=== PATIENT | male | born 1960 | race Caucasian/White ===

== ENCOUNTER 2023-09-01 00:41 | Emergency (ER) | payer MEDICARE, OTHER, SELFPAY ==
[2023-09-01] VITALS (18 sets, daily range): BP systolic 163–200; BP diastolic 93–113; PULSE 68–102; RESP 16–94; TEMP 36.2–36.6; O2SAT 24–97; BMI 28.2
--- NOTE | 2023-09-01 00:56 | CT_ITS ---
INDICATION: seizure EXAMINATION: CT BRAIN - CT Head or Brain W/O Contrast Injection TECHNIQUE: Multiple axial images were obtained of the head without intravenous contrast. A radiation dose optimization technique was used for this scan. IV Contrast dosage and agent: None. COMPARISON: None FINDINGS: BRAIN PARENCHYMA: No intra- or extra-axial hemorrhage. No evidence of acute infarct. Focal CSF density encephalomalacia spanning 6 mm along the left anterior corpus callosum. No intracranial mass or mass effect. Minimal periventricular and subcortical white matter hypodense chronic small vessel white matter ischemic change. There is preservation of the luong/white matter interface. Posterior fossa structures are unremarkable. CSF SPACES: Cerebral volume appropriate for age. No hydrocephalus. Basal cisterns are patent. CALVARIUM, SKULL BASE, PARANASAL SINUSES AND MASTOID AIR CELLS: No acute osseous finding. Mild scattered paransal sinus mucoperisteal thickening. Mastoid air cells are clear. ORBITS: Both globes, extraocular muscles, optic nerves and retrobulbar fat appear unremarkable. ASPECTS Score for Acute Strokes: 10 CT/Brain/Head without Contrast IMPRESSION: 6 mm CSF density encephalomalacia along the left anterior corpus callosum compatible with prior infarct. No surrounding edema or associated mass effect. MRI could further evaluate as clinically indicated. No CT evidence of acute intracranial hemorrhage or injury. Electronically Signed: Bull Branch MD at 2:40 EDT ,
--- NOTE | 2023-09-01 00:56 | RAD_ITS ---
INDICATION: seizure EXAMINATION/TECHNIQUE: X-RAY - XR Chest 1 View COMPARISON: None. FINDINGS: LINES/DEVICES: None. LUNGS: Elevated right hemidiaphragm. No consolidation, florid edema or effusion. Mild subsegmental atelectasis or scarring in the left lung base. No pneumothorax. MEDIASTINUM AND CARDIOVASCULAR STRUCTURES: Cardiac silhouette not enlarged. BONES AND SOFT TISSUES: Unremarkable. RAD/Chest 1 View (Portable) IMPRESSION: No radiographic evidence of acute cardiopulmonary disease. Electronically Signed: Bull Branch MD at 1:30 EDT ,
--- NOTE | 2023-09-01 00:56 | CT_ITS ---
INDICATION: abd pain EXAMINATION: CT ABDOMEN AND PELVIS WITH CONTRAST - CT Abdomen And Pelvis W/ Contrast Injection TECHNIQUE: Helically acquired images were obtained of the abdomen and pelvis following IV contrast. A radiation dose optimization technique was used for this scan. IV Contrast dosage and agent: 100 mL Isovue-370 Oral contrast: None. COMPARISON: Chest radiograph September 01, 2023. FINDINGS: LOWER CHEST: Elevated right hemidiaphragm. Mild bilateral basilar subsegmental atelectasis. Mild cardiomegaly. Mild multivessel coronary atherosclerosis. No pericardial effusion. LIVER: Homogeneous. No focal mass. GALLBLADDER AND BILIARY TREE: No calcified gallstones. No gallbladder distension or wall edema. No intra- or extrahepatic biliary ductal dilation. PANCREAS: No focal cystic or solid mass. SPLEEN: Normal size without focal cystic or solid mass. ADRENAL GLANDS: No nodules. KIDNEYS AND URETERS: Indeterminate right renal exophytic 2.6 cm length hypodense lesion. Otherwise unremarkable bilateral renal cortical appearance. No hydronephrosis. Mild bilateral senescent perinephric stranding. Unremarkable ureters and bladder . PERITONEUM: No ascites or free air. No other fluid collection. BOWEL: No acute gastric finding. No small bowel distention or focal wall thickening. Prior appendectomy suggested . No colonic wall thickening or surrounding inflammation. Moderate to large distal colonic stool burden LYMPH NODES: No enlarged mesenteric or retroperitoneal lymph nodes. VESSELS: Aortic atherosclerosis without dissection or ectasia. REPRODUCTIVE ORGANS: Large prostate 5.5 cm transverse with small central calcification.. ABDOMINAL WALL: Small fat-containing inguinal hernias without inflammation. No discrete abdominal or pelvic wall hernia. BONES: No lytic or blastic abnormality. CT/Abdomen/Pelvis W IV Cont ONLY IMPRESSION: Moderate to large distal colonic stool burden as can be seen with constipation. No evidence of bowel obstruction or focal inflammatory change. Indeterminate exophytic right renal 2.6 cm lesion. Recommend ultrasound follow-up to assess for hyperdense cyst. If not definitive multiphasic contrast-enhanced CT or MRI would be recommended. Large prostate. Bilateral fat-containing inguinal hernias without inflammation. Electronically Signed: Bull Branch MD at 2:56 EDT ,
[2023-09-01 00:57] LABS: Blood Gas Specimen Type VEN; O2 Delivery Device Room Air; SITE Not entered; VBG BASE EXCESS -9 mmol/L (-1.0-3.5); VBG Bicarbonate 18 mmol/L (22-26); VBG PO2 61 mmHg (25-40); VBG SO2 89 % (50-70); VBG TCO2 19 mmol/L (23-33); VBG pCO2 35.1 mmHg (41-51); VBG pH 7.31 (7.32-7.42)
[2023-09-01] MEDS: Ondansetron 4 MG/2 ML Vial IV (01:05)
[2023-09-01] MEDS: 0.9% Normal Saline (1000mL) 1,000 ML 999 ML IV (01:05)
[2023-09-01 01:10] LABS: Absolute Lymphocyte Count 5.33 X10^3/uL (0.83-4.51); Absolute Neutrophil Count 7.6 X10^3/uL (2.0-7.7); Basophil# 0.11 X10^3/uL; Basophil% 0.7 % (0-1); Eosinophil# 0.45 X10^3/uL; Hematocrit 52.5 % (40-54); Lymphocyte # 5.33 X10^3/ul (0.83-4.51); Lymphocyte % 35.4 % (19-41); Mean Corp Hgb Conc 32.4 g/dL (32-36); Mean Corpuscular Hgb 30.2 pg (27.0-32.0); Mean Corpuscular Volume 93.4 fL (80-94); Mean Platelet Vol. 9.3 fl (6.2-12.0); Monocyte# 1.27 X10^3/uL; Monocyte% 8.4 % (0-10); NRBC Flagged by Analyzer 0 % (0-5); Neutrophil # 7.64 X10^3/uL (2.7-7.7); Neutrophil % 50.7 % (47-70); POSITIVE DIFFERENTIAL YES; POSITIVE MORPHOLOGY YES; Platelet Count 323 K/mm3 (150-450); RBC Distribution Width CV 14.2 % (11.6-14.6); RBC Distribution Width SD 49.1 fl (35.1-43.9); Red Blood Count 5.62 M/mm3 (4.6-6.2); White Blood Count 15.1 K/mm3 (4.4-11.0)
[2023-09-01 01:28] LABS: Alcohol, Blood (Medical)-Serum < 3.0 mg/dL
[2023-09-01 01:36] LABS: Anion Gap 10 (5-15); BUN 19 mg/dL (7-18); BUN/Creat Ratio 14.8 RATIO (10-20); Calcium,Total 8.5 mg/dL (8.5-10.1); Chloride 111 mmol/L (98-107); Creatinine, Serum 1.28 mg/dL (0.70-1.30); EST Glomerular Filtration Rate 60 mL/min (>60); Est Glom Filt Rate - Afr Amer 73 mL/min (>60); Estimated Creatinine Clearance 59.66 ml/min; Glucose 158 mg/dL (74-106); LDH 208 U/L (87-241); Lactic Acid 7.2 mmol/L (0.4-1.9); Magnesium 2.2 mg/dL (1.6-2.6); Potassium 3.2 mmol/L (3.5-5.1); Sodium Level 142 mmol/L (136-145)
[2023-09-01 02:20] LABS: Differential Indicated SCAN CRITERIA MET
[2023-09-01 02:21] LABS: Differential Comment SCANNED
[2023-09-01 02:24] LABS: Bacteria 0 SEEN /hpf (None Seen); Mucous, Urine 0 SEEN /hpf (<or=2+); Squamous Epithelial Cells - UA 0 SEEN /hpf (0-5); White Blood Cells 0 SEEN /hpf (0-5)
[2023-09-01 02:28] LABS: Color, Urine Yellow (Yellow); Glucose, Dipstick Normal (Normal); Ketone-Dipstick Negative (Negative); Leukocyte Esterase-Dipstick Negative /ul (Negative); Nitrite-Dipstick Negative (Negative); Occult Blood-Urine 10 /ul (Negative); Protein-Dipstick 30 mg/dl (Negative); Urine Bilirubin Dipstick Negative (Negative); Urine Clarity Clear (Clear); Urine Urobilinogen Normal (Normal); Urine pH 6.5 (5.0 - 8.0)
[2023-09-01 02:36] LABS: Red Blood Cells-Urine 0-5 SEEN /hpf (0-5)
[2023-09-01 02:43] LABS: Amphetamine Urine VISTA NEGATIVE (<1000 ng/mL); Barbiturate Urine VISTA NEGATIVE (< 200 ng/mL); Benzodiazepine Urine VISTA NEGATIVE (< 200 ng/mL); Cocaine Urine VISTA NEGATIVE (< 300 ng/mL); Ecstacy Urine VISTA NEGATIVE (< 500 ng/mL); Methadone Urine VISTA NEGATIVE (< 300 ng/mL); PCP Urine VISTA NEGATIVE (< 25 ng/mL); THC Urine VISTA NEGATIVE (< 50 ng/mL); Vista UDS pH Range 5
[2023-09-01] MEDS: cloNIDine HCl 0.1 MG Tablet PO (04:16)
[2023-09-01] MEDS: Labetalol (Prefilled) 20 MG/4 ML 10 MG IV ×2 (04:17→05:10)
[2023-09-01 05:03] LABS: Reflex Lactate? Y
--- NOTE | 2023-09-01 05:52 | EX.ED.DYSGE1 ---
HPI History of Present Illness Chief Complaint: Unresponsive Informant: patient and spouse/S.O. Narrative Narrative: Patient is a 63-year-old male who reports that he is overall healthy. states that she was downstairs while he was upstairs in bed tonight. She states she heard some type of retching or abnormal noises coming from the bedroom and went up to check on the patient. She states when she arrived patient seemed to be stiff and he would not respond and secondary to his EMS was called for evaluation. EMS reports that patient was breathing but not following commands and appeared unresponsive upon arrival Of note mental status is still depressed upon arrival to the ER but has drastically improved and he is answering questions and following commands. He states he does not remember any of the preceding events PFSH PFS Home Medications ?Medication ?Instructions ?Recorded ?Last Taken ?Type lisinopril 20 mg tablet 20 mg PO DAILY 30 days #30 tabs 09/01/23 Unknown Rx Allergy/AdvReac Type Severity Reaction Status Date / Time No Known Allergies Allergy Verified 09/01/23 00:44 Social History Smoking Status: Never smoker ROS [facility] ED Constitutional Constitutional ED: Denies chills or fever(s) Eyes Eyes: Denies blurry vision, change in vision or diplopia ENT ENT ED: Denies sore throat Cardiovascular Cardiovascular: Denies chest pain Respiratory/Chest Respiratory/Chest: Denies cough or dyspnea Gastrointestinal Gastrointestinal: Denies abdominal pain, diarrhea, nausea or vomiting Genitourinary Genitourinary ED: Denies dysuria Musculoskeletal Musculoskeletal: Denies myalgias Integumentary Denies rash Neurologic Neurologic: Denies headache(s) Hematologic/Lymphatic Hematologic/Lymphatic: Denies easy bleeding or easy bruising EXAM Physical Exam Const Vital Signs: 09/01/23 00:42 09/01/23 01:41 09/01/23 02:00 Temperature 97.8 F Temperature Source Axillary Pulse Rate 102 H 78 77 Respiratory Rate 20 H 94 H 20 H Blood Pressure 187/101 H 187/98 H 175/99 H Blood Pressure Mean 129 127 124 Pulse Ox 89 24 95 Oxygen Delivery Method Room Air Nasal Cannula Nasal Cannula Oxygen Flow Rate (L/min) 2 2 09/01/23 00:56 09/01/23 01:00 09/01/23 01:15 Temperature Temperature Source Pulse Rate 98 99 97 Respiratory Rate 27 H 28 H 25 H Blood Pressure 186/108 H 184/111 H Blood Pressure Mean 131 132 Pulse Ox 93 91 92 Oxygen Delivery Method Oxygen Flow Rate (L/min) 09/01/23 01:30 09/01/23 01:40 09/01/23 01:45 Temperature Temperature Source Pulse Rate 99 90 Respiratory Rate 22 H 20 H Blood Pressure 171/104 H 178/101 H Blood Pressure Mean 121 124 Pulse Ox 91 89 Oxygen Delivery Method Room Air Oxygen Flow Rate (L/min) 09/01/23 01:51 09/01/23 02:00 09/01/23 02:15 Temperature Temperature Source Pulse Rate 83 87 83 Respiratory Rate 25 H 26 H 25 H Blood Pressure 172/93 H 175/99 H 187/98 H Blood Pressure Mean 117 120 124 Pulse Ox 92 94 92 Oxygen Delivery Method Room Air Oxygen Flow Rate (L/min) 09/01/23 02:30 09/01/23 02:45 09/01/23 03:00 Temperature Temperature Source Pulse Rate 77 Respiratory Rate 26 H Blood Pressure 186/109 H 185/108 H 200/111 H Blood Pressure Mean 131 131 138 Pulse Ox 94 Oxygen Delivery Method Room Air Room Air Oxygen Flow Rate (L/min) 09/01/23 03:00 09/01/23 04:00 09/01/23 05:00 Temperature Temperature Source Pulse Rate 77 72 68 Respiratory Rate 25 H 16 18 Blood Pressure 196/111 H 190/111 H 182/113 H Blood Pressure Mean 139 137 136 Pulse Ox 96 97 93 Oxygen Delivery Method Room Air Room Air Room Air Oxygen Flow Rate (L/min) 09/01/23 05:10 Temperature Temperature Source Pulse Rate Respiratory Rate Blood Pressure 187/107 H Blood Pressure Mean 133 Pulse Ox Oxygen Delivery Method Oxygen Flow Rate (L/min) Positive well nourished, well developed and obese General Appearance ED: well developed; Negative for pallor Nutritional Appearance: obese HEENT Reports moist mucous membranes HEENT Narrative: Positive tongue and cheek biting noted concerning for seizure activity No signs of infection noted in the posterior pharynx Eyes PERRL and EOMs intact bilaterally General Eye ED: Negative for scleral icterus Neck supple Neck Narrative: No nuchal rigidity or meningeal signs Chest Wall palpation of chest normal Chest Narrative: No bony deformity or crepitance Resp normal respiratory effort and clear to auscultation bilaterally Resp Narrative: No nasal flaring retractions tachypnea or accessory muscle use Cardio regular rhythm Rate: tachycardic and other Other Details: Tachycardic rate with regular rhythm Radial and carotid pulses are equal and symmetric GI normal to inspection, nondistended, normoactive bowel sounds, non-tender, non-distended and no masses GI Narrative: No voluntary guarding or rigidity or pulsatile mass or fluid wave Auscultation: normoactive bowel sounds Palpation: soft Back/Spine Back/Spine Narrative: No bony deformity or step-off of the thoracic or lumbar spine no midline tenderness to palpation Extremity normal to inspection Extremity Narrative: No asymmetric edema no pitting edema negative Homans' sign bilaterally Neuro CN's II-XII intact bilaterally Neuro Narrative: Patient has a GCS of 14. He is slow to respond but does answer appropriately. Cranial nerves II through XII are grossly intact without focal neurologic deficit. Sensorium / Orientation: orientation impaired Psych Psych Narrative: Patient has a flat affect Skin no rashes or lesions noted, no wounds and skin turgor normal General Skin Exam: Negative for jaundice or pallor MDM MDM MDM Narrative Medical decision making narrative: Patient arrived to the ER hypertensive with GCS of 14. reported finding him stiff and unresponsive and EMS reported that he was spontaneously breathing but not following commands or awake upon their arrival. He has had spontaneous improvement of his mental status in the ER. On exam he does have tongue and cheek biting. Differential diagnosis is for new onset seizure activity versus electrolyte abnormality versus acute kidney injury versus spontaneous brain bleed such as subarachnoid or subdural hemorrhage. Secondary to this concern basic blood work and a CT of the head were obtained. Labs showed leukocytosis and lactic acidosis most consistent with stress response from his most likely seizure activity. There are no other signs concerning for infection and states that he is not a drinker and therefore there is low concern for alcohol withdrawal. Patient CT scan revealed no acute brain pathology. As he was kept in the ER his mental status returned to a GCS of 15 and his neurologic exam was normal. He was hypertensive upon arrival but after treatment his blood pressure reduced between 15 and 25% which is the target goal in the ER. With this there were no signs of endorgan damage. Therefore at this time as patient's had improvement of his vitals as well as mental status his neurologic exam is normal and his workup for acute cause of seizure is negative and has not had any further seizure activity I feel he is safe for discharge and can follow-up with neurology on an outpatient basis. History & Record Review Discussion w/independent historian: Patient and Family Lab Data Attestation: I reviewed the patient's lab results. Labs: Laboratory Results - last 24 hr 09/01/23 09/01/23 00:48 02:20 WBC 15.1 H RBC 5.62 Hgb 17.0 H Hct 52.5 MCV 93.4 MCH 30.2 MCHC 32.4 RDW Std Deviation 49.1 H RDW Coeff of Mushtaq 14.2 Plt Count 323 MPV 9.3 Immature Gran % (Auto) 1.800 H Neut % (Auto) 50.7 Lymph % (Auto) 35.4 Haakon % (Auto) 8.4 Eos % (Auto) 3.0 Baso % (Auto) 0.7 Absolute Neuts (auto) 7.6 Absolute Lymphs (auto) 5.33 H Nucleated RBC % 0 Differential Comment SCANNED Sodium 142 Potassium 3.2 L Chloride 111 H Carbon Dioxide 21.0 Anion Gap 10 BUN 19 H Creatinine 1.28 Estim Creat Clear Calc 59.66 Est GFR (MDRD) Af Amer 73 Est GFR (MDRD) Non-Af 60 BUN/Creatinine Ratio 14.8 Glucose 158 H Lactic Acid 7.2 H* Calcium 8.5 Magnesium 2.2 Lactate Dehydrogenase 208 Prolactin 40.0 Urine Color Yellow Urine Clarity Clear Urine pH 6.5 Ur Specific [place] 1.010 Urine Protein 30 H Urine Glucose (UA) Normal Urine Ketones Negative Urine Occult Blood 10 H Urine Nitrite Negative Urine Bilirubin Negative Urine Urobilinogen Normal Ur Leukocyte Esterase Negative Urine RBC 0-5 SEEN Urine WBC 0 SEEN Ur Squamous Epith Cells 0 SEEN Urine Bacteria 0 SEEN Urine Mucus 0 SEEN Urine Opiates Screen NEGATIVE Urine Methadone Screen NEGATIVE Ur Barbiturates Screen NEGATIVE Ur Phencyclidine Scrn NEGATIVE Ur Amphetamines Screen NEGATIVE MDMA (Ecstasy) Screen NEGATIVE U Benzodiazepines Scrn NEGATIVE Urine Cocaine Screen NEGATIVE U Cannabinoids Screen NEGATIVE Ur Drug Screen Comment Ethyl Alcohol < 3.0 ABG Data ABG results: ABG 09/01/23 00:53 Specimen Type MACARENA Sample Site Not entered VBG pH 7.31 L VBG pO2 61 H VBG HCO3 18 L VBG Total CO2 19 L VBG O2 Sat (Calc) 89 H VBG Base Excess -9 L POC Mix VBG pCO2 Pt Tmp 35.1 L O2 Delivery Device Room Air Radiography Diagnostic Testing: Clinical Impression(s) from Imaging Studies Abdomen/Pelvis CT 09/01/23 00:56 IMPRESSION: Moderate to large distal colonic stool burden as can be seen with constipation. No evidence of bowel obstruction or focal inflammatory change. Indeterminate exophytic right renal 2.6 cm lesion. Recommend ultrasound follow-up to assess for hyperdense cyst. If not definitive multiphasic contrast-enhanced CT or MRI would be recommended. Large prostate. Bilateral fat-containing inguinal hernias without inflammation. Electronically Signed: Bull Branch MD at 2:56 EDT , Brain CT 09/01/23 00:56 IMPRESSION: 6 mm CSF density encephalomalacia along the left anterior corpus callosum compatible with prior infarct. No surrounding edema or associated mass effect. MRI could further evaluate as clinically indicated. No CT evidence of acute intracranial hemorrhage or injury. Electronically Signed: Bull Branch MD at 2:40 EDT , Chest X-Ray 09/01/23 00:56 IMPRESSION: No radiographic evidence of acute cardiopulmonary disease. Electronically Signed: Bull Branch MD at 1:30 EDT , Chest x-ray as interpreted by the emergency medicine physician reveals no acute infiltrate pneumothorax or pleural effusion Discharge Plan Triage Chief Complaint: Unresponsive ED Provider: Haile Walden Dx/Rx/DC Orders Clinical Impression: New onset seizure, Hypertension Instructions: ED Hypertension New Begin Treatment, ED Seizure New [facility] Adult Prescriptions: New lisinopril 20 mg tablet 20 mg PO DAILY 30 Days Qty: 30 0RF Primary Care Provider: Care Physician,No Primary Referrals: Jose Alberto Neumann MD [Non-Staff] - Enrique Lara MD [Non-Staff -Ordering Privileges] - Care Physician,No Primary [Primary Care Provider] - Activity Restrictions/Additional Instructions: Please take the lisinopril as directed to help control your blood pressure and follow-up with your family doctor to discuss continuing or changing this treatment. Also discussed with your family doctor about obtaining an outpatient ultrasound or MRI based on the masses found on your right kidney today. Do not drive or operate heavy machinery based on your seizure activity that occurred this evening and follow-up with neurology for repeat evaluation Print Language: Swedish Disposition Disposition: Home, Self Care Discharge Date/Time: 09/01/23 06:12
== END 2023-09-01 06:12 | disposition home or self-care (01) ==
PROVIDERS: Emergency Provider Emergency Medicine; Visit Provider Emergency Medicine
DX: R56.9 Unspecified convulsions (principal); I10 Essential (primary) hypertension
CPT/HCPCS: 70450; 71045; 74177; 80048; 80307; 80320; 81001; 82803; 83605; 83615; 83735; 84146; 85025; 93005; 96361; 96374; 96375; 99284; Q9967; A4216; G0480; J2405

== ENCOUNTER 2023-09-28 11:47 | Outpatient (CLI) | payer MEDICARE, OTHER, SELFPAY ==
[2023-09-28 15:35] LABS: Hemoglobin 16.3 g/dL (13.0-16.5); Mean Corp Hgb Conc 32.6 g/dL (32-36); Mean Corpuscular Volume 91.9 fL (80-94); Mean Platelet Vol. 9.8 fl (6.2-12.0); Platelet Count 301 K/mm3 (150-450); RBC Distribution Width CV 14.3 % (11.6-14.6); Red Blood Count 5.44 M/mm3 (4.6-6.2); White Blood Count 11.3 K/mm3 (4.4-11.0)
[2023-09-28 15:47] LABS: Vitamin D,25 Hydroxy 24.4 ng/mL
[2023-09-28 16:47] LABS: ALB/GLOB Ratio 1.1 RATIO (0.9-2.4); AST(SGOT) 23 U/L (15-37); Alanine Aminotransfer ALT/SGPT 45 U/L (16-61); Albumin, Serum 3.8 g/dL (3.2-5.0); Alkaline Phosphatase 88 U/L (45-117); Anion Gap 7 (5-15); BUN 18 mg/dL (7-18); BUN/Creat Ratio 18.6 RATIO (10-20); Calcium,Total 9.1 mg/dL (8.5-10.1); Chloride 115 mmol/L (98-107); Creatinine, Serum 0.97 mg/dL (0.70-1.30); EST Glomerular Filtration Rate 83 mL/min (>60); Est Glom Filt Rate - Afr Amer 100 mL/min (>60); Globulin 3.6 g/dL (2.2-4.2); Glucose 97 mg/dL (74-106); Protein, Total 7.4 g/dL (6.4-8.2); Sodium Level 142 mmol/L (136-145); Thyroid Stim Hormone (TSH) 0.88 uIU/mL (0.358-3.74)
== END 2023-09-28 23:59 | disposition home or self-care (01) ==
LOC: MFPLAB 11:50
PROVIDERS: PCP Family Medicine; Visit Provider Family Medicine
DX: I10 Essential (primary) hypertension (principal); Z12.5 Encounter for screening for malignant neoplasm of prostate
CPT/HCPCS: 36415; 80053; 82306; 84153; 84443; 85027; G0103

== ENCOUNTER → 2023-10-19 | Outpatient (CLI) | payer MEDICARE, OTHER, SELFPAY ==
--- NOTE | 2023-10-19 | IMM_PTH ---
PATIENT: RACHEL WHITEHEAD LOC: [facility] U#:[id number] AGE/SX: 63/M ROOM: RE10/19/[address]: Dr. Clive Tomas MD : 1960 BED: DIS: 10/19/2023 SPEC #: [id number] RECD: 10/23/23 12:04 STATUS: ARTURO RETawny #: [id number] JOEL: 10/19/23 00:[address]: Clive Tomas DEPT: IMMUNOHISTOCHEMISTRY RECD BY: Tomas Iverson ENTERED: 10/23/23 12:05 SP TYPE: IMMUNO OTHR DR: Yaima Escobar MD Tissues: A - PROSTATE RIGHT B - PROSTATE RIGHT C - PROSTATE RIGHT Procedures: S100 (initial) PHYSICIAN & INSTITUTION [place] [id number] SPECIMEN INFORMATION: Tissue Source: A- Prostate, right apex, B- Prostate, right mid, C- Prostate, right base Clinical Info: Elevated PSA Specimen Number: [id number] CPT code: 14047a1 METHODOLOGY: Deparaffinized sections of prefer/formalin-fixed tissue or PAP/DQ stained slides are incubated with monoclonal/polyclonal antibodies/oligonucleotide probes. Localization is made via biotin free immunoperoxidase method. Appropriate controls are performed and reacted as expected. Results on target cell population are indicated in the following table: RESULTS: ANTIBODY / CLONE RESULT Block A S-100 (4C4.9) positive Block B S-100 (4C4.9) positive Block C S-100 (4C4.9) positive These tests were developed and their performance characteristics determined by [facility]. They may not have been cleared or approved by the U.S. Food and Drug Administration. The FDA has determined that such clearance or approval is not necessary. The above immunohistochemical/dualISH markers are ordered and reviewed by the Pathologist. INTERPRETATION: A. Prostate, right apex, core biopsy: Perineural invasion present. B. Prostate, right mid, core biopsy: Perineural invasion present. C. Prostate, right base, core biopsy: Perineural invasion present. AM/ 10/24/2023
--- NOTE | 2023-10-19 08:00 | PROSBIL_PTH ---
PATIENT: RACHEL WHITEHEAD [facility] U#:[id number] AGE/SX: 63/M ROOM: RE10/19/[address]: Dr. Clive Tomas MD : 1960 BED: DIS: 10/19/2023 SPEC #: [id number] RECD: 10/19/23 15:00 STATUS: ARTURO DUARTE #: [id number] JOEL: 10/19/23 08:[address]: Clive Tomas DEPT: SURGICAL PATHOLOGY RECD BY: Karthik Hernandez ENTERED: 10/20/23 07:14 SP TYPE: PROST BX OT DR: Yaima Escobar MD Tissues: A - PROSTATE RIGHT B - PROSTATE RIGHT C - PROSTATE RIGHT Procedures: PROSTATE BX HEADER OPERATION: Prostate biopsy PRE-OP DIAGNOSIS: Elevated PSA TISSUE SUBMITTED: A- Right apex, B- Right mid, C- Right base MICROSCOPIC DIAGNOSIS A. Right prostate apex, core biopsy: Adenocarcinoma. Fults grade: 3+4=7 Cores involved: 1/1 Tissue involved: 100% (discontinuous) Greatest tumor length: 10.0 millimeters Perineural invasion: present. See comment. B. Right mid prostate, core biopsy: Adenocarcinoma. Fults grade: 3+4=7 Cores involved: 1/1 Tissue involved: 95% Greatest tumor length: 10.5 millimeters Perineural invasion: present. See comment. C. Right prostate base, core biopsy: Adenocarcinoma. Fults grade: 3+4=7 Cores involved: 1/1 Tissue involved: 75% Greatest tumor length: 9.0 millimeters Perineural invasion: present. See comment. ROMI/ 10/23/2023 COMMENT A,B,C, Immunohistochemistry ([id number]) supports the above diagnosis. Case has been reviewed in consultation with Dr. Hancock who concurs with the above diagnosis. IDC:[id number] MICROSCOPIC DESCRIPTION Slides are reviewed. GROSS DESCRIPTION A - Received is one container designated prostate, right apex. The specimen consists of one elongated fragments of light ling-white soft tissue measuring 1.0 cm in length and 0.1 cm in diameter. The specimen is totally submitted in one cassette. B - Received is one container designated prostate, right mid. The specimen consists of one elongated fragments of light ling-white soft tissue measuring 1.2 cm in length and 0.1 cm in diameter. The specimen is totally submitted in one cassette. C - Received is one container designated prostate, right base. The specimen consists of one elongated fragments of light ling-white soft tissue measuring 1.5 cm in length and 0.1 cm in diameter. The specimen is totally submitted in one cassette. SJ/mr 10/20/2023 TC:0 CPT: G0146
== END | disposition home or self-care (01) ==
LOC: LABSPEC 15:57
PROVIDERS: PCP Family Medicine; Visit Provider Urology
DX: R97.20 Elevated prostate specific antigen [PSA] (principal)
CPT/HCPCS: 88305; 88342; G0416

== ENCOUNTER → 2023-10-31 | Outpatient (CLI) | payer MEDICARE, OTHER, SELFPAY ==
--- NOTE | 2023-10-31 08:17 | NM_ITS ---
CLINICAL: 63-year-old male with history of primary prostate carcinoma. WHOLE BODY 99m Tc MDP RADIONUCLIDE BONE SCINTIGRAPHY COMPARISON: None available FINDINGS: Following the intravenous administration of 25.0 mCi of 99m Tc MDP, whole body bone images reveal: 1. There is increased tracer concentration defined in the acromioclavicular and sternoclavicular compartments of both shoulders, the upper cervical spine posteriorly on the right, the sixth and seventh thoracic vertebra, the first and second lumbar vertebra, the left ankle and right midfoot. 2. The remaining skeletal structures are scintigraphically unremarkable with normal-appearing renal images and urinary bladder activity identified. NM/Bone Scan Whole Body IMPRESSION: 1. The increase in radiopharmaceutical defined in the bilateral shoulders, cervical, thoracic and lumbar spine, the left ankle and right midfoot is commensurate with degenerative arthritis. Plain film x-ray may be of benefit in the region of the lumbar spine. 2. There is no definitive scintigraphic evidence of skeletal metastatic disease on the present examination. Electronically Signed: Sherif Rangel DO at 22:10 EDT ,
== END | disposition home or self-care (01) ==
PROVIDERS: PCP Family Medicine; Referring Provider Urology; Visit Provider Urology
DX: C61 Malignant neoplasm of prostate (principal)
CPT/HCPCS: 78306; A9503

== ENCOUNTER → 2023-11-08 | Outpatient (CLI) | payer MEDICARE, OTHER, SELFPAY ==
--- NOTE | 2023-11-08 13:19 | CT_ITS ---
STUDY: CT ABDOMEN AND PELVIS WITH CONTRAST REASON FOR EXAM: Male, 63 years old. PROSTATE CA RADIATION DOSAGE (If Supplied By Facility): CTDIvol = ( 15.87 ) mGy, DLP = ( 992.76 ) mGycm TECHNIQUE: Transaxial images were obtained from the dome of the diaphragm to the symphysis pubis with oral contrast. Oral and amp; IV Readi-CAT and amp; 100mL Isovue-300 was administered. Sagittal and coronal images were reconstructed. Individualized dose optimization techniques were used for this CT. COMPARISON: 09/01/2023 FINDINGS: The visualized lung bases are unremarkable. The visualized portions of the heart are within normal limits. Normal liver. Normal gallbladder and extrahepatic biliary system. Normal spleen. Normal pancreas. Normal bilateral adrenal glands. Normal right kidney. Normal left kidney. 2.5 cm exophytic cyst in the midsection of right kidney. Normal visualized stomach. Normal small intestine. Normal colon. There are surgical clips in the region of the appendix consistent with a prior appendectomy. Normal abdominal aorta. Normal inferior vena cava. Normal retroperitoneum. Normal urinary bladder. There is enlargement of the prostate gland. Small bilateral inguinal hernias containing fat. Normal osseous structures. CT/Abdomen/Pelvis W IV Cont ONLY IMPRESSION: Normal enhanced CT of the abdomen and pelvis. Electronically Signed: Sherif Rajan MD at 14:54 EDT ,
[2023-11-08 13:57] LABS: CREATININE FINGERSTICK 1.3 mg/dL (0.70-1.30)
== END | disposition home or self-care (01) ==
LOC: CT 13:16
PROVIDERS: PCP Family Medicine; Referring Provider Urology; Visit Provider Urology
DX: Z01.812 Encounter for preprocedural laboratory examination (principal); C61 Malignant neoplasm of prostate; I10 Essential (primary) hypertension
CPT/HCPCS: 74177; Q9967

== ENCOUNTER → 2023-11-28 | Outpatient (CLI) | payer MEDICARE, OTHER, SELFPAY ==
--- NOTE | 2023-11-28 09:00 | PET_ITS ---
EXAMINATION: Ga [address] ? INDICATIONS: 63-year-old male with a history of prostate carcinoma, presenting for initial staging examination. ? COMPARISON EXAMINATION: None available. ? INDEX LESION SIZE PROMISE SCORE SUV INTERPRETATION Prostate gland 41.5 mm 2 35.04 Fulfills quantitative criteria for viable neoplasm ? TECHNIQUE: Following the intravenous administration of 9.3 mCi of Ga 68 PSMA via the left antecubital fossa, multiplanar image acquisitions of the head, neck, chest, abdomen and pelvis to the level of the midthigh, obtained at 73 minutes post tracer distribution reveal: ? The examination was interpreted using the EANM (Breezy et al., Journal of Nuclear Medicine Molecular Imaging 44:1622, 2017) and PROMISE (Eilance et al., Journal of Nuclear Medicine 59:469, 2018) interpretive criteria. ? HEIGHT:?? 67 inches WEIGHT:?? 182 pounds ? PSMA expression score PROMISE criteria: High (3): SUV > parotid-salivary gland, intermediate (2): SUV > liver, low (1): > blood pool, < liver, (0): < blood pool. ? SUV reference values: Parotid glands 49.7. Normal liver parenchyma 6.5. Blood pool 1.7. ? FINDINGS: ? HEAD/NECK:? Symmetric radiopharmaceutical concentration is defined in the bilateral parotid and submandibular glands. Physiologic tracer uptake is noted in the nasal cavity. ? There is no evidence of abnormal increased tracer uptake within the context of the cranial vault. ? CHEST:? There is no quantitative scintigraphic evidence of abnormal increased radiopharmaceutical concentration within the context of the bilateral hemithorax pulmonary parenchyma, right and left hemithorax at the pleural interface, mediastinal structures, and left-right thoracic perihilum. ? CT of the chest demonstrates the following anatomic characteristics: Atherosclerotic calcification is defined in the thoracic aorta without evidence of dilatation, aneurysm formation. Coronary artery calcification is observed. Bilateral axillary and mediastinal soft tissue densities demonstrate no evidence of quantitatively significant increased radiotracer uptake. There are no parenchymal densities-nodules defined in the right and left hemithorax with quantitatively significant increased radiopharmaceutical concentration. ? ABDOMEN/PELVIS:? Facilitated uptake is heterogeneously apparent in the lower pelvis caudad to the urinary bladder in the distribution of the prostate gland. The calculated maximum standard uptake value is 35.04. The PROMISE Score is 2. The maximal axial diameter of the metabolic, morphologic abnormality is 41.5 mm. Uniform, homogeneous radiopharmaceutical concentration is defined in the hepatic and splenic parenchyma, visualization of the bilateral renal units, urinary bladder, and visualized intestinal tract. ? CT of the abdomen and pelvis is remarkable for the following: Exophytic density involving the right kidney is nontracer avid. Atherosclerotic calcification is defined in the abdominal aorta without evidence of dilatation, aneurysm formation. Pelvic arterial calcification is observed. Occasional colonic diverticulosis is noted without evidence of diverticulitis. Bilateral fat containing inguinal hernias are demonstrated. Right and left inguinal soft tissue densities are ametabolic. There is calcification noted within the prostate gland. ? SKELETAL:? There is no evidence of quantitatively significant enhanced radiopharmaceutical metabolism on meticulous inspection of the appendicular and axial skeletal structures. ? Degenerative changes defined in the thoracic and lumbar spine demonstrate no evidence of increased glucose metabolism. There are no sclerotic, mixed sclerotic-lytic, or primarily lytic changes defined in the axial skeletal structures with evidence of increased FDG uptake. ? PET/PET/CT Tumor Base -Thigh Subs IMPRESSION: 1. ABNORMAL EXAMINATION INDICATIVE OF MALIGNANT-VIABLE NEOPLASM. 2. Increased tracer uptake noted in the prostate gland fulfills quantitative criteria for viable neoplastic infiltration. 3. No other scintigraphic abnormalities are demonstrated. Electronic Signature Sherif Rangel D.O. Accurate Quantification of SUVs and standardized PROMISE scores for this report are calculated using the exclusive [employer], ([place]. Patent No. [id number] [phone] [phone] [place] patent [phone] ). Standardization and correction of the FDG SUV metric exclusively available with [employer] intellectual property, allow for vendor non-specific objective quantitative sequential FDG PET-CT comparison and otherwise unobtainable optimization of the sensitivity and specificity of the examination. [email or web address] Electronically Signed: Sherif Rangel DO at 23:34 EDT ,
== END | disposition home or self-care (01) ==
LOC: ONC 08:22
PROVIDERS: PCP Family Medicine; Referring Provider Urology; Visit Provider Urology
DX: C61 Malignant neoplasm of prostate (principal)
CPT/HCPCS: 78815; A9595

== ENCOUNTER 2024-02-02 05:54 | Day surgery (SDC) | payer MEDICARE, OTHER, SELFPAY ==
[2024-02-02] VITALS (9 sets, daily range): BP systolic 137–154; BP diastolic 82–98; PULSE 58–64; RESP 14–16; TEMP 36.1–36.6; O2SAT 98–100; BMI 29.5
[2024-02-02] MEDS: Lactated Ringers 1,000 ML 15 ML IV (06:39)
--- NOTE | 2024-02-02 07:05 | PRE.ANES_ITS ---
ASA Classification* ASA Classification ASA Classification: 3 Assessment & Plan Anesthesia* Anesthesia Assessment Anesthesia Assessment: Discussed sedation and/or anesthesia options, risks, benefits, and alternatives with patient/parents/legal guardian/POA. Questions invited. The patient/parents/legal guardian/POA seems to understand and agrees to proceed with anesthesia plan. Reviewed the physical assessment, medical history, allergy history and patient home medications list prior to surgery/procedure/anesthetic and documented any changes. Performed airway and anesthesia risk assessments. Anesthesia Type Anesthesia Type: General (see written pre anesthesia record for full assessment) Anesthesia Focused Assessment* Temperature: 96.9 F Pulse Rate: 63 Blood Pressure: 154/92 Respiratory Rate: 14 Pulse Ox: 98 Airway Assessment Mouth opens: >3 cm Mallampati Score: II Focused Labs Anesthesia Preop lab: CBC WBC 11.3 K/mm3 (4.4-11.0) H 09/28/23 11:51 RBC 5.44 M/mm3 (4.6-6.2) 09/28/23 11:51 Hgb 16.3 g/dL (13.0-16.5) 09/28/23 11:51 Hct 50.0 % (40-54) 09/28/23 11:51 Plt Count 301 K/mm3 (150-450) 09/28/23 11:51 CHEMISTRY Potassium 4.0 mmol/L (3.5-5.1) 09/28/23 11:51 Sodium 142 mmol/L (136-145) 09/28/23 11:51 Magnesium 2.2 mg/dL (1.6-2.6) 09/01/23 00:48 BUN 18 mg/dL (7-18) 09/28/23 11:51 Creatinine 0.97 mg/dL (0.70-1.30) 09/28/23 11:51 Glucose 97 mg/dL (74-106) 09/28/23 11:51 TSH 0.88 uIU/mL (0.358-3.74) 09/28/23 11:51 COAG Pre-Assessment Diagnosis/Proposed Procedure Planned Operative Procedure(s): SPACE OARS GEL AND GOLD MARKERS Anesthesia History Anesthesia History - extracorporeal circulation specialist: Anesthesia History - extracorporeal circulation specialist Hx Hospitalization No 12/07/23 08:38 Any Problems With Anesthesia No 12/07/23 08:38 Cholinesterase deficiency No 12/07/23 08:38 You/Your Family Experience No 12/07/23 08:38 fever (hyperthermia) with Relationship Recent Exposure to Contagious No 02/02/24 06:30 Disease Does patient have nerve No 12/07/23 08:38 stimulator Patient instructed to have device shut off --Does patient have Pacemaker No 02/02/24 06:33 or ICD? When Was Last Pacemaker Check QUESTION #4 FULL TEXT: You/Your Family Experience fever (hyperthermia) with Anesthesia Last Oral Intake Last Oral intake: Last Oral Intake NPO since 00:00 02/02/24 06:33 Meds taken in AM with sips of Yes 02/02/24 06:33 water? Meds patient instructed to lipitor 02/02/24 06:33 take am of surgery levetiraetam PONV PONV - extracorporeal circulation specialist: PONV - extracorporeal circulation specialist Female No 12/07/23 08:38 HX of Motion Sickness No 12/07/23 08:38 HX of N/V After Surgery No 12/07/23 08:38 Non-Smoker Yes 12/07/23 08:38 Duration of Surgery greater No 12/07/23 08:38 than 60 minutes Number of Risk Factors 1 12/07/23 08:38 PONV Score Low Risk 12/07/23 08:38 Height & Weight Height & Weight: Anesthesia: Height & Weight Height 5 ft 7 in 02/02/24 06:33 Weight: 85.5 kg 02/02/24 06:33 Body Mass Index (BMI) 29.5 02/02/24 06:33 Respiratory Assessment Respiratory Assessment - extracorporeal circulation specialist: Respiratory Tract Infection Hx - extracorporeal circulation specialist Hx Respiratory Tract Infection No 12/07/23 08:38 STOP Sleep Apnea STOP Sleep Apnea - extracorporeal circulation specialist: STOP Sleep Apnea - extracorporeal circulation specialist Hx Hypertension Yes: CONTROLLED WITH MEDS 12/07/23 08:38 Hx Sleep Apnea No 12/07/23 08:38 CPAP BIPAP Do you snore loudly (louder No 12/07/23 08:38 than talking or can be heard Do you often feel tired/ No 12/07/23 08:38 fatigued/ sleepy during daytime? Has anyone observed you stop No 12/07/23 08:38 breathing during sleep? STOP Results Negative 12/07/23 08:38 QUESTION #5 FULL TEXT : Do you snore loudly (louder than talking or can be heard through closed doors)? 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 Specify any problems Hx of Preganancy in last 3 N/A 12/07/23 08:38 Months Nurse Filling Out Transfusion DSCHRIBER 12/07/23 08:38 & Questions: Date: 12/07/23 12/07/23 08:38 Time: 08:39 12/07/23 08:38 Patient unable to answer at this time (ie. confused, unrespo /Reproduction History /Reproductive History - extracorporeal circulation specialist: /Reproductive Hx- extracorporeal circulation specialist Hx Now No 12/07/23 08:38 Gestational Age (in weeks): EDC: Hx Hx Para Hx Section SAB No 12/07/23 08:38 Active Medications Active Medications: Current Medications Generic Name Dose Route Start Last Admin Trade Name Freq PRN Reason Stop Dose Admin Cefazolin Sodium 2 gm/ N/A 20 mls @ 400 mls/hr 02/02/24 07:30 IV 02/02/24 07:32 PREOP ONE Lactated Ringer's 1,000 mls @ 15 mls/hr 02/02/24 06:15 02/02/24 06:39 IV 02/05/24 00:54 15 mls/hr .Q48H VIKTOR Administration Protocol PFSH Medical History Cancer Prostate disease High cholesterol Injury of back Shortness of breath on exertion Non-smoker TIA (transient ischemic attack) Seizures History of echocardiogram Hypertension Home Medications ?Medication ?Instructions ?Recorded ?Last Taken ?Type amlodipine 10 mg tablet 10 mg PO DAILY 12/07/23 02/01/24 History aspirin 81 mg tablet,delayed 81 mg PO DAILY 12/07/23 01/19/24 History release (Adult Aspirin Regimen) atorvastatin 40 mg tablet 40 mg PO QHS 12/07/23 02/02/24 History levetiracetam 500 mg tablet 500 mg PO BID 12/07/23 02/02/24 History lisinopril 30 mg tablet 30 mg PO DAILY 12/07/23 02/01/24 History leuprolide (3 month) 22.5 mg (3 22.5 mg subcut [id number] 12/12/23 Unknown History month) subcutaneous syringe ([employer]) Allergy/AdvReac Type Severity Reaction Status Date / Time Opioids - Morphine Analogues AdvReac Intermediate Nausea Verified 02/02/24 06:48 Family History Father Cancer Prostate Surgical History Hx of vasectomy Hx of appendectomy Social History Smoking Status: Never smoker alcohol intake: never substance use type: does not use Review of Systems (Anesthesia) ROS Narrative System reviewed and no additional complaints, except as documented.
--- NOTE | 2024-02-02 07:06 | PRE.ANES_ITS ---
ASA Classification* ASA Classification ASA Classification: 2 Assessment & Plan Anesthesia* Anesthesia Assessment Anesthesia Assessment: Discussed sedation and/or anesthesia options, risks, benefits, and alternatives with patient/parents/legal guardian/POA. Questions invited. The patient/parents/legal guardian/POA seems to understand and agrees to proceed with anesthesia plan. Reviewed the physical assessment, medical history, allergy history and patient home medications list prior to surgery/procedure/anesthetic and documented any changes. Performed airway and anesthesia risk assessments. Anesthesia Type Anesthesia Type: General (see written pre anesthesia record for full assessment) Anesthesia Focused Assessment* Temperature: 96.9 F Pulse Rate: 63 Blood Pressure: 154/92 Respiratory Rate: 14 Pulse Ox: 98 Airway Assessment Mouth opens: >3 cm Mallampati Score: II Focused Labs Anesthesia Preop lab: CBC WBC 11.3 K/mm3 (4.4-11.0) H 09/28/23 11:51 RBC 5.44 M/mm3 (4.6-6.2) 09/28/23 11:51 Hgb 16.3 g/dL (13.0-16.5) 09/28/23 11:51 Hct 50.0 % (40-54) 09/28/23 11:51 Plt Count 301 K/mm3 (150-450) 09/28/23 11:51 CHEMISTRY Potassium 4.0 mmol/L (3.5-5.1) 09/28/23 11:51 Sodium 142 mmol/L (136-145) 09/28/23 11:51 Magnesium 2.2 mg/dL (1.6-2.6) 09/01/23 00:48 BUN 18 mg/dL (7-18) 09/28/23 11:51 Creatinine 0.97 mg/dL (0.70-1.30) 09/28/23 11:51 Glucose 97 mg/dL (74-106) 09/28/23 11:51 TSH 0.88 uIU/mL (0.358-3.74) 09/28/23 11:51 COAG Pre-Assessment Diagnosis/Proposed Procedure Planned Operative Procedure(s): SPACE OARS GEL AND GOLD MARKERS Anesthesia History Anesthesia History - institutional cook: Anesthesia History - institutional cook Hx Hospitalization No 12/07/23 08:38 Any Problems With Anesthesia No 12/07/23 08:38 Cholinesterase deficiency No 12/07/23 08:38 You/Your Family Experience No 12/07/23 08:38 fever (hyperthermia) with Relationship Recent Exposure to Contagious No 02/02/24 06:30 Disease Does patient have nerve No 12/07/23 08:38 stimulator Patient instructed to have device shut off --Does patient have Pacemaker No 02/02/24 06:33 or ICD? When Was Last Pacemaker Check QUESTION #4 FULL TEXT: You/Your Family Experience fever (hyperthermia) with Anesthesia Last Oral Intake Last Oral intake: Last Oral Intake NPO since 00:00 02/02/24 06:33 Meds taken in AM with sips of Yes 02/02/24 06:33 water? Meds patient instructed to lipitor 02/02/24 06:33 take am of surgery levetiraetam PONV PONV - institutional cook: PONV - institutional cook Female No 12/07/23 08:38 HX of Motion Sickness No 12/07/23 08:38 HX of N/V After Surgery No 12/07/23 08:38 Non-Smoker Yes 12/07/23 08:38 Duration of Surgery greater No 12/07/23 08:38 than 60 minutes Number of Risk Factors 1 12/07/23 08:38 PONV Score Low Risk 12/07/23 08:38 Height & Weight Height & Weight: Anesthesia: Height & Weight Height 5 ft 7 in 02/02/24 06:33 Weight: 85.5 kg 02/02/24 06:33 Body Mass Index (BMI) 29.5 02/02/24 06:33 Respiratory Assessment Respiratory Assessment - institutional cook: Respiratory Tract Infection Hx - institutional cook Hx Respiratory Tract Infection No 12/07/23 08:38 STOP Sleep Apnea STOP Sleep Apnea - institutional cook: STOP Sleep Apnea - institutional cook Hx Hypertension Yes: CONTROLLED WITH MEDS 12/07/23 08:38 Hx Sleep Apnea No 12/07/23 08:38 CPAP BIPAP Do you snore loudly (louder No 12/07/23 08:38 than talking or can be heard Do you often feel tired/ No 12/07/23 08:38 fatigued/ sleepy during daytime? Has anyone observed you stop No 12/07/23 08:38 breathing during sleep? STOP Results Negative 12/07/23 08:38 QUESTION #5 FULL TEXT : Do you snore loudly (louder than talking or can be heard through closed doors)? 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 Specify any problems Hx of Preganancy in last 3 N/A 12/07/23 08:38 Months Nurse Filling Out Transfusion DSCHRIBER 12/07/23 08:38 & Questions: Date: 12/07/23 12/07/23 08:38 Time: 08:39 12/07/23 08:38 Patient unable to answer at this time (ie. confused, unrespo /Reproduction History /Reproductive History - institutional cook: /Reproductive Hx- institutional cook Hx Now No 12/07/23 08:38 Gestational Age (in weeks): EDC: Hx Hx Para Hx Section SAB No 12/07/23 08:38 Active Medications Active Medications: Current Medications Generic Name Dose Route Start Last Admin Trade Name Freq PRN Reason Stop Dose Admin Dexamethasone Sodium Phosphate Confirm 02/02/24 07:04 Dexamethasone 20 Mg/5 Ml Vial Administered 02/02/24 07:05 Dose 20 mg .ROUTE .STK-MED ONE Cefazolin Sodium 2 gm/ N/A 20 mls @ 400 mls/hr 02/02/24 07:30 IV 02/02/24 07:32 PREOP ONE Lactated Ringer's 1,000 mls @ 15 mls/hr 02/02/24 06:15 02/02/24 06:39 IV 02/05/24 00:54 15 mls/hr .Q48H VIKTOR Administration Protocol PFSH Medical History Cancer Prostate disease High cholesterol Injury of back Shortness of breath on exertion Non-smoker TIA (transient ischemic attack) Seizures History of echocardiogram Hypertension Home Medications ?Medication ?Instructions ?Recorded ?Last Taken ?Type amlodipine 10 mg tablet 10 mg PO DAILY 12/07/23 02/01/24 History aspirin 81 mg tablet,delayed 81 mg PO DAILY 12/07/23 01/19/24 History release (Adult Aspirin Regimen) atorvastatin 40 mg tablet 40 mg PO QHS 12/07/23 02/02/24 History levetiracetam 500 mg tablet 500 mg PO BID 12/07/23 02/02/24 History lisinopril 30 mg tablet 30 mg PO DAILY 12/07/23 02/01/24 History leuprolide (3 month) 22.5 mg (3 22.5 mg subcut [id number] 12/12/23 Unknown History month) subcutaneous syringe ([employer]) Allergy/AdvReac Type Severity Reaction Status Date / Time Opioids - Morphine Analogues AdvReac Intermediate Nausea Verified 02/02/24 06:48 Family History Father Cancer Prostate Surgical History Hx of vasectomy Hx of appendectomy Social History Smoking Status: Never smoker alcohol intake: never substance use type: does not use Review of Systems (Anesthesia) ROS Narrative System reviewed and no additional complaints, except as documented.
--- NOTE | 2024-02-02 07:19 | HP.PCM_ITS ---
HPI - General General Date of Service: 02/02/24 Chief Complaint: Prostate cancer HPI Narrative WILBERTO WHITEHEAD, is a 63 M who presents for placement of spacer gel and gold markers for prostate cancer. [facility] Medical History Cancer Prostate disease High cholesterol Injury of back Shortness of breath on exertion Non-smoker TIA (transient ischemic attack) Seizures History of echocardiogram Hypertension Home Medications ?Medication ?Instructions ?Recorded ?Last Taken ?Type amlodipine 10 mg tablet 10 mg PO DAILY 12/07/23 02/01/24 History aspirin 81 mg tablet,delayed 81 mg PO DAILY 12/07/23 01/19/24 History release (Adult Aspirin Regimen) atorvastatin 40 mg tablet 40 mg PO QHS 12/07/23 02/02/24 History levetiracetam 500 mg tablet 500 mg PO BID 12/07/23 02/02/24 History lisinopril 30 mg tablet 30 mg PO DAILY 12/07/23 02/01/24 History leuprolide (3 month) 22.5 mg (3 22.5 mg subcut [id number] 12/12/23 Unknown History month) subcutaneous syringe ([employer]) Allergy/AdvReac Type Severity Reaction Status Date / Time Opioids - Morphine Analogues AdvReac Intermediate Nausea Verified 02/02/24 06:48 Family History Father Cancer Prostate Surgical History Hx of vasectomy Hx of appendectomy Social History Smoking Status: Never smoker alcohol intake: never substance use type: does not use Vital Signs Vital Signs Vital Signs: 02/02/24 06:30 02/02/24 06:33 02/02/24 07:05 Temperature 96.9 F L 96.9 F L Temperature Source Temporal Pulse Rate 63 63 Respiratory Rate 14 14 Respiratory Pattern Normal Blood Pressure 154/92 H 154/92 H Blood Pressure Mean 112 Blood Pressure Source Monitor Blood Pressure Position Semi-Fowlers Blood Pressure Location Right Arm Pulse Ox 98 98 Oxygen Delivery Method Room Air 02/02/24 07:06 Temperature 96.9 F L Temperature Source Pulse Rate 63 Respiratory Rate 14 Respiratory Pattern Blood Pressure 154/92 H Blood Pressure Mean Blood Pressure Source Blood Pressure Position Blood Pressure Location Pulse Ox 98 Oxygen Delivery Method Weight Weight: 85.5 kg Body Mass Index (BMI) 29.5
[2024-02-02] MEDS: Cefazolin 2 GM in Syringe IV (07:31)
--- NOTE | 2024-02-02 07:59 | DCINST_ITS ---
Discharge Instructions Diet Discharge Diet: No restrictions Activity Discharge Activity: Return to Normal Activity and May Not Drive (while taking narcotic pain medications.) Dressing / Incision Call your doctor if you observe: Fever of 101 or Higher Follow Up Care Please Follow Up With: Clive Tomas MD When: Call [phone] for an appointment Test Results: Test results from this visit will be discussed in further detail at your follow- up appointment, if applicable. Discharge Plan Admission Primary Reason for Your Visit: markers and spacer gel Attending Provider: Clive Tomas Primary Care Provider: Yaima Escobar Instructions Print Language: Gibralt[place] Discharge Orders/Prescriptions Prescriptions: New ciprofloxacin HCl [Cipro] 500 mg tablet 500 mg PO BID Qty: 10 0RF Continued Eligard (3 month) 22.5 mg syringe 22.5 mg subcut [id number] atorvastatin 40 mg tablet 40 mg PO QHS amlodipine 10 mg tablet 10 mg PO DAILY levetiracetam 500 mg tablet 500 mg PO BID lisinopril 30 mg tablet 30 mg PO DAILY aspirin [Adult Aspirin Regimen] 81 mg tablet,delayed release (DR/EC) 81 mg PO DAILY Referrals / Follow Up: Yaima Escobar MD [Primary Care Provider] - Clive Tomas MD [Med Staff - Active Staff] - Disposition Disposition (needs filled in before D/C Order can be placed): Home, Self Care
--- NOTE | 2024-02-02 08:00 | PCM.OPRPT ---
Report of Operation Date of Procedure: 02/02/24 Pre-Operative Diagnosis: Prostate cancer Post-Operative Diagnosis: Per same Surgery/Procedure Performed:: Placement of gold markers and SpaceOAR gel matrix for treatment for prostate cancer with radiation Description of Surgical Findings:: Is a 63-year-old male who was diagnosed with advanced prostate cancer he has oligometastatic disease significant cancer of the prostate and a few metastasis sites which started on hormone deprivation therapy with planned plan to add a androgen receptor inhibitor in the future at this point we had consultation with radiation oncology and they thought given the limited metastatic disease that he would benefit from a treatment of the primary and also stereotactic treatment of the other metastatic sites in order to help control the disease patient understands that with his advanced disease is possible with treatments that this may not be curative but certainly will help control disease and he understands he also have to be on long-term hormone therapy. Today we are going to take him the surgery to place markers in the prostate to assist with the tracking of the prostate during radiation and also to place a spacer gel to separate the rectum of the prostate to help lower the toxicity of radiation to the rectum. Patient was taken back to the operating room after smooth induction of general anesthetic he was placed in dorsolithotomy position. The penis testicles and perineum were prepped and draped in usual sterile fashion. I then used a biplanar ultrasound and introduced that into the rectum, I identified the prostate the base the middle and the apex of the prostate identified the rectum and an obvious fascial by ultrasound. Then using the fiducial markers provided I through the perineum advanced the first marker into the patient's left mid prostate and the green chain marker was then deployed within ultrasound this area could see the marker in the prostate we then advanced the next green chain marker into the right base of the prostate another green chain marker was deployed in the right base of prostate and the final good marker was deployed in the right apex of the prostate. After all 3 gold markers were deployed and visualized then used bevel needle, we then prepared the spacer gel matrix in the back table per the gift officer's instructions. And then once his gel was prepared then advanced the needle using ultrasound guidance to guide the needle into the space between the rectum and the prostate very narrow space guide and right below the fascia of the prostate and injected some sterile saline and he could see 9 separation between the prostate and the rectum once I confirmed it was in the proper location then the gel matrix was slowly injected into the space and there was 9 separation between the rectum and the prostate as this was injected. I then remove the needle. Pressure was placed on the perineum where the puncture sites were from the needles there was minimal bleeding. Patient's anesthetic was reversed and he was taken back to the PACU in stable condition at this point then he will proceed with radiation treatments and he will follow-up in the office for his next hormone deprivation therapy shot. Surgeon: Clive Tomas Type of Anesthesia: General Drains: none Admit VTE Documentation VTE Present on Admission: No VTE Mechan Device Prophylaxis: SCD's VTE Pharm Prophylaxis ordered?: No
--- NOTE | 2024-02-02 08:08 | PCM.POST.ANE ---
Anesthesia: Postop Eval I Current Vital Signs Temperature: 97.6 F Pulse Rate: 62 Blood Pressure: 137/97 Respiratory Rate: 16 Pulse Ox: 98 Oxygen Delivery Method: Room Air Assessment Airway patent: Yes Spontaneous unlabored respirations: Yes Mental status: Awake and Calm nausea: No Vomiting: No Anesthesia Complication: No Fluid Hydration Crystalloid volume administer (ml): 400 Total IV fluid infused: 400 Progress Note Anesthesia document: Postop Eval 1 completed: Yes
--- NOTE | 2024-02-02 08:25 | PCM.POSTANE2 ---
Anesthesia Postop Eval I Sum Postop Eval Completion status Anesthesia document: Postop Eval 1 completed: Yes Anesthesia Postop Eval I Summary Anesthesia Postop Eval I Summary: Anesthesia Postop Eval I: Assessment Summary Airway patent Yes 02/02/24 08:08 JEN Spontaneous unlabored Yes 02/02/24 08:08 JEN respirations Mental status Awake,Calm 02/02/24 08:08 [email or web address].[email or web address] nausea No 02/02/24 08:08 JEN Vomiting No 02/02/24 08:08 JEN Anesthesia Postop Eval I: Fluid Summary Crystalloid volume administer 400 02/02/24 08:08 JEN (ml) Colloids volume administered ( ml) Blood Product volume administered (ml) Total IV fluid infused 400 02/02/24 08:08 JEN Anesthesia Postop Eval I: Summary Notes Anesthesia Complication No 02/02/24 08:08 JEN Anesthesia Complication Comment: Post-operative progress note Anesthesia: Postop Eval II Evaluation Mental status: Awake Pain Level: 0 nausea: No Vomiting: No
== END 2024-02-02 09:07 | disposition home or self-care (01) ==
LOC: SDC 05:55 → AC 05:57
PROVIDERS: PCP Family Medicine; Referring Provider Urology; Visit Provider Urology
PROC: (CPT 55874; principal; 2024-02-02 07:15)
DX: C61 Malignant neoplasm of prostate (principal); I10 Essential (primary) hypertension; Z79.891 Long term (current) use of opiate analgesic; E78.00 Pure hypercholesterolemia, unspecified; Z86.73 Personal history of transient ischemic attack (TIA), and cerebral infarction without residual deficits; Z90.49 Acquired absence of other specified parts of digestive tract; Z98.52 Vasectomy status; Z79.82 Long term (current) use of aspirin
CPT/HCPCS: 55876; 00400; J7120; J2405

== ENCOUNTER → 2024-02-15 | Outpatient (CLI) | payer MEDICARE, OTHER, SELFPAY ==
--- NOTE | 2024-02-15 10:59 | MRI_ITS ---
STUDY: MR PROSTATE GLAND/ PELVIS WITH T WITHOUT CONTRAST REASON FOR EXAM: Male, 63 years old. very high risk prostate cancer, eval disease exten TECHNIQUE: Standardized fat and water weighted pulse sequences were obtained in all 3 orthogonal planes, pre-and post contrast administration. IV 17ML CLARISCAN was administered for the contrast portion of the examination. COMPARISON: PET/CT exam dated November 28, 2023 FINDINGS: Prostate gland volume/size: 4.9 x 5.11 x 5.39 cm which is mildly enlarged. Anterior fibromuscular stroma: Normal Peripheral zone: Abnormal lobular low signal nodule in the mid to medial aspect and posterior region of the left peripheral zone measures 1.34 cm as seen on image 12/30 series 7. This nodule intensely enhances on the postcontrast study and shows abnormal dark ADC and bright diffusion weighted signal indicating malignant neoplasm. Similar low signal tissue crosses the midline into the medial posterior aspect of the right peripheral zone with similar characteristics. There is heterogeneity scattered throughout the right parenchyma of the bilateral peripheral zones. Central zone: Diffusely heterogeneous and nodular and hyperplastic with low signal fibrosis intermixed and diffuse enhancement. Transitional zone: Diffusely heterogeneous and nodular and hyperplastic with low signal fibrosis intermixed and diffuse enhancement. Prostate capsule: Intact Seminal vesicles: Normal on the left. Thickening of the rodriguez throughout the right seminal vesicles but bright fluid signal in the central lumen is likely due to chronic inflammation, less likely malignancy given the lack of enhancement. No discrete mass is seen in the seminal vesicles. Small to moderate amount of fluid posterior to the prostate gland and seminal vesicles is most likely related to recent biopsy or intervention for treatment of the prostate gland. Pelvic sidewall lymphadenopathy: None demonstrated. Bony structures: No marrow edema or fracture or lytic or blastic lesions or enhancing bony lesions are present. Normal urinary bladder. Normal visualized small intestine. Normal visualized colon. There is no pelvic fluid. There is no pelvic mass lesion or lymphadenopathy. Small fat-containing inguinal hernias are present. MRI/Pelvis W/WO Contrast IMPRESSION: 1. Peripheral zone: Abnormal lobular low signal nodule in the mid to medial aspect and posterior region of the left peripheral zone measures 1.34 cm as seen on image 12/30 series 7. This nodule intensely enhances on the postcontrast study and shows abnormal dark ADC and bright diffusion weighted signal indicating malignant neoplasm. Similar low signal tissue crosses the midline into the medial posterior aspect of the right peripheral zone with similar characteristics. There is heterogeneity scattered throughout the right parenchyma of the bilateral peripheral zones. 2. PI-RADS 5: very high (clinically significant cancer is highly likely to be present) Reference information: Normal prostate tissue Benign prostatic hypertrophy cancer/tumor - low signal peripheral , transitional, and central zones malignancy appears as bright on DWI and low signal on ADC map Prostate imaging-reporting and data system (PI-RADS) PI-RADS 1: very low (clinically significant cancer is highly unlikely to be present) PI-RADS 2: low (clinically significant cancer is unlikely to be present) PI-RADS 3: intermediate (the presence of clinically significant cancer is equivocal) PI-RADS 4: high (clinically significant cancer is likely to be present) PI-RADS 5: very high (clinically significant cancer is highly likely to be present) PI-RADS X: component of exam technically inadequate or not performed Prostate malignancy distribution: Peripheral zone: 70-80% Transitional zone: 10-20% Central zone: 5% or less Electronically Signed: Hunter aCli MD at 15:26 EDT Reading Location ID and State: [facility] / [place] , Service support ,
== END | disposition home or self-care (01) ==
LOC: MRI 10:58
PROVIDERS: PCP Family Medicine; Referring Provider Student in an Organized Health Care Education/Training Program; Visit Provider Student in an Organized Health Care Education/Training Program
DX: C61 Malignant neoplasm of prostate (principal)
CPT/HCPCS: 72197; A9575; A4216

== ENCOUNTER → 2024-02-28 | Outpatient (CLI) | payer MEDICARE, OTHER, SELFPAY | END | disposition home or self-care (01) | LOC: LAB.FUTURE 11:46 → LAB 11:48 | PROVIDERS: PCP Family Medicine; Referring Provider Urology; Visit Provider Urology | DX: R97.20 Elevated prostate specific antigen [PSA] (principal) | CPT/HCPCS: 36415; 84153 ==

== ENCOUNTER → 2024-03-15 | Outpatient (CLI) | payer MEDICARE, OTHER, SELFPAY ==
[2024-03-15 16:29] LABS: ALB/GLOB Ratio 1.1 RATIO (0.9-2.4); AST(SGOT) 25 U/L (15-37); Alanine Aminotransfer ALT/SGPT 60 U/L (16-61); Albumin, Serum 3.8 g/dL (3.2-5.0); Alkaline Phosphatase 69 U/L (45-117); Anion Gap 7 (5-15); BUN 17 mg/dL (7-18); BUN/Creat Ratio 17.7 RATIO (10-20); Calcium,Total 9.4 mg/dL (8.5-10.1); Chloride 106 mmol/L (98-107); Creatinine, Serum 0.96 mg/dL (0.70-1.30); EST Glomerular Filtration Rate 83 mL/min (>60); Est Glom Filt Rate - Afr Amer 101 mL/min (>60); Globulin 3.6 g/dL (2.2-4.2); Glucose 96 mg/dL (74-106); Potassium 4.2 mmol/L (3.5-5.1); Protein, Total 7.4 g/dL (6.4-8.2); Sodium Level 139 mmol/L (136-145)
== END | disposition home or self-care (01) ==
LOC: MTLAB 12:43
PROVIDERS: PCP Family Medicine; Referring Provider Family Medicine; Visit Provider Family Medicine
DX: I10 Essential (primary) hypertension (principal)
CPT/HCPCS: 36415; 80053

== ENCOUNTER 2024-04-08 10:37 | Outpatient (CLI) | payer MEDICARE, OTHER, SELFPAY ==
[2024-04-08 12:17] LABS: Absolute Lymphocyte Count 0.61 X10^3/uL (0.83-4.51); Absolute Neutrophil Count 4.8 X10^3/uL (2.0-7.7); Basophil# 0.05 X10^3/uL; Basophil% 0.7 % (0-1); Eosinophil# 0.63 X10^3/uL; Eosinophils% 8.7 % (0-5); Hematocrit 45.2 % (40-54); Hemoglobin 15.1 g/dL (13.0-16.5); Lymphocyte # 0.61 X10^3/ul (0.83-4.51); Lymphocyte % 8.4 % (19-41); Mean Corp Hgb Conc 33.4 g/dL (32-36); Mean Corpuscular Hgb 30.1 pg (27.0-32.0); Mean Corpuscular Volume 90.2 fL (80-94); Mean Platelet Vol. 8.7 fl (6.2-12.0); Monocyte# 1.09 X10^3/uL; NRBC Flagged by Analyzer 0 % (0-5); Neutrophil # 4.79 X10^3/uL (2.7-7.7); Neutrophil % 65.7 % (47-70); Platelet Count 241 K/mm3 (150-450); RBC Distribution Width SD 45.9 fl (35.1-43.9); Red Blood Count 5.01 M/mm3 (4.6-6.2); White Blood Count 7.3 K/mm3 (4.4-11.0)
[2024-04-08 13:48] LABS: Cholesterol 110 mg/dL (200); High Density Lipoprotein 51 mg/dL; PSA,Total- Diagnostic 5.07 ng/mL (0.0-4.0); Triglycerides 112 mg/dL; Very Low Density Lipoprotein 22 mg/dL (5-40)
== END 2024-04-08 23:59 | disposition home or self-care (01) ==
LOC: MFPLAB 10:38
PROVIDERS: PCP Family Medicine; Referring Provider Family Medicine; Visit Provider Family Medicine
DX: C61 Malignant neoplasm of prostate (principal); Z13.220 Encounter for screening for lipoid disorders; R53.83 Other fatigue; Z12.11 Encounter for screening for malignant neoplasm of colon; E78.5 Hyperlipidemia, unspecified
CPT/HCPCS: 36415; 80061; 84153; 84403; 85025

== ENCOUNTER → 2024-04-10 | Outpatient (CLI) | payer MEDICARE, OTHER, SELFPAY ==
[2024-04-10 12:47] LABS: PSA,Total- Diagnostic 4.55 ng/mL (0.0-4.0)
== END | disposition home or self-care (01) ==
LOC: MFPLAB 10:37
PROVIDERS: PCP Family Medicine; Referring Provider Family Medicine; Visit Provider Family Medicine
DX: C61 Malignant neoplasm of prostate (principal)
CPT/HCPCS: 36415; 84153

== ENCOUNTER → 2024-05-01 | Outpatient (CLI) | payer MEDICARE, OTHER, SELFPAY ==
[2024-05-01 10:41] LABS: PSA,Total - Annual Screen 1.61 ng/mL (0.00-4.00)
[2024-05-07 15:07] LABS: Testosterone, Total 13 ng/dL (264-916)
== END | disposition home or self-care (01) ==
LOC: MFPLAB 08:30
PROVIDERS: PCP Family Medicine; Referring Provider Family Medicine; Visit Provider Family Medicine
DX: R79.89 Other specified abnormal findings of blood chemistry (principal); C61 Malignant neoplasm of prostate; Z12.5 Encounter for screening for malignant neoplasm of prostate
CPT/HCPCS: 36415; 84153; 84402; 84403; G0103

== ENCOUNTER → 2024-05-03 | Outpatient (CLI) | payer MEDICARE, OTHER, SELFPAY | END | disposition home or self-care (01) | LOC: MFPLAB 08:25 | PROVIDERS: PCP Family Medicine; Referring Provider Family Medicine; Visit Provider Family Medicine | DX: R79.89 Other specified abnormal findings of blood chemistry (principal) | CPT/HCPCS: 36415; 84403 ==

== ENCOUNTER → 2024-12-10 | Outpatient (CLI) | payer MEDICARE, OTHER, SELFPAY ==
[2024-12-10 10:53] LABS: PSA,Total- Diagnostic 0.14 ng/mL (0.00-4.00)
== END | disposition home or self-care (01) ==
LOC: PAVLAB 09:25
PROVIDERS: PCP Family Medicine; Referring Provider Urology; Visit Provider Urology
DX: R97.20 Elevated prostate specific antigen [PSA] (principal)
CPT/HCPCS: 36415; 84153

== ENCOUNTER → 2025-04-10 | Outpatient (CLI) | payer MEDICARE, OTHER, SELFPAY ==
[2025-04-10 18:07] LABS: Hematocrit 43.8 % (40-54); Hemoglobin 14.5 g/dL (13.0-16.5); Mean Corp Hgb Conc 33.1 g/dL (32-36); Mean Corpuscular Volume 92.4 fL (80-94); Mean Platelet Vol. 9.4 fl (6.2-12.0); Platelet Count 330 K/mm3 (150-450); RBC Distribution Width CV 13.0 % (11.6-14.6); RBC Distribution Width SD 43.9 fl (35.1-43.9); Red Blood Count 4.74 M/mm3 (4.6-6.2); White Blood Count 10.4 K/mm3 (4.4-11.0)
[2025-04-10 18:11] LABS: Cholesterol 114 mg/dL (<=200); Low Density Lipoprotein Calc. 46 mg/dL; Triglycerides 173 mg/dL; Very Low Density Lipoprotein 35 mg/dL (5-40); cholesterol:hdl ratio screen 2.88
== END | disposition home or self-care (01) ==
LOC: MFPLAB 14:28
PROVIDERS: PCP Family Medicine; Referring Provider Family Medicine; Visit Provider Family Medicine
DX: I10 Essential (primary) hypertension (principal); Z91.89 Other specified personal risk factors, not elsewhere classified; E78.5 Hyperlipidemia, unspecified
CPT/HCPCS: 36415; 80061; 82247; 85027